=== PATIENT | male | born 1990 | race Hispanic/Latino ===

== ENCOUNTER 2021-07-28 15:28 | Emergency (ER) | payer SELFPAY ==
--- NOTE | 2021-07-28 15:33 | ED.EYEPROB ---
HPI - Eye Problem General Chief complaint: Eye Problems Stated complaint: Eye Pain Time Seen by Provider: 07/28/21 15:33 Source: patient and RN notes reviewed History of Present Illness HPI Narrative: Patient is a 31-year-old male who presents the urgent care with complaints of right pain, redness, blurry vision. Patient states that he noticed it a couple days ago after the wind getting something in his eye . Patient states that he has been using [id number] eye soothing drops without much relief. No other acute complaints. No acute distress noted. Patient read the plan of care. Some parts of this dictation were generated by voice recognition software and may contain typographical and/or grammatical inaccuracies. Related Data Allergies Allergy/AdvReac Type Severity Reaction Status Date / Time No Known Allergies Allergy Verified 07/28/21 15:56 Review of Systems Review of Systems: CONSTITUTIONAL: Denies fever, chills, or sweats. EYES: Reports of painful reddened right eye with clear drainage and blurry vision ENT: Denies rhinorrhea, congestion, sore throat, or otalgia. CARDIOVASCULAR: Denies chest pain, palpitations, or edema. RESPIRATORY: Denies cough or dyspnea. GASTROINTESTINAL: Denies abdominal pain, nausea, vomiting, or diarrhea. GENITOURINARY: Denies dysuria or hematuria. SKIN: Denies rash or itching. MUSCULOSKELETAL: Denies back pain, joint pain, or myalgia. NEUROLOGIC: Denies headache, numbness, or weakness. All other systems reviewed are negative, except as documented in HPI. PMFSH Comments At the time of my signature, I reviewed and agree with the nursing past medical, surgical, social, and family history. There is no relevant family history pertinent to the patient complaint. Exam Narrative: GENERAL: This is a well-nourished, well-developed patient, in no apparent distress. HEAD: normocephalic, atraumatic. EYES: Inconsistent/abnormal pupil dilation to the right. Iris discolored compared to left. Consistent with possible hyphema. Moderately injected right conjunctive a/sclera. left sclera clear/white. Vision is grossly intact. EARS: External ears normal NOSE: External nose normal with no obvious nasal discharge, nares without redness, no rhinorrhea. THROAT: Mucous membranes moist NECK: Neck supple CARDIOVASCULAR: Regular rate and rhythm without murmurs, gallops, or rubs. RESPIRATORY: Clear to auscultation. Breath sounds equal bilaterally. No wheezes, rales, or rhonchi. SKIN: warm, intact with no suspicious lesions or rash, good texture and turgor. NEURO: awake, alert, and oriented to person, place and time. There were no obvious focal neurologic abnormalities. EXTREMITIES: No clubbing, cyanosis, or edema. Course Course Level of Care: Express Care Visit Vital Signs Vital signs: Vital Signs Temperature 98.0 F 07/28/21 15:42 Pulse Rate 57 L 07/28/21 15:42 Respiratory Rate 16 07/28/21 15:42 Blood Pressure 126/68 07/28/21 15:42 Pulse Oximetry 100 07/28/21 15:42 Temperature 98.0 F 07/28/21 15:42 Pulse Rate 57 L 07/28/21 15:42 Respiratory Rate 16 07/28/21 15:42 Blood Pressure 126/68 07/28/21 15:42 Pulse Oximetry 100 07/28/21 15:42 Reviewed MDM - Eye Problem MDM Narrative Medical decision making narrative: Considering patient is refusing ER for further ophthalmology evaluation?we will treat with antibiotic drops. Advised patient to use a warm compress and antibiotic drops as prescribed. Cannot fully rule out emergent ophthalmology diagnosis. Appears to be consistent with hyphema. Advised the patient to go directly to the emergency room if he develops any increase in redness, blurriness, or pain to the eye. Follow-up with ophthalmology first thing Friday. Patient does not wish to go to the emergency room for ophthalmology evaluation. Patient will sign out AGAINST MEDICAL ADVICE. Differential Diagnosis Differential diagnosis: Likely corneal abrasion, conjunct
[2021-07-28 15:42] VITALS: BP 126/68; PULSE 57; RESP 16; TEMP 36.7; O2SAT 100
== END 2021-07-28 16:00 | disposition left against medical advice (07) ==
PROVIDERS: Emergency Provider Nurse Practitioner Family
DX: S05.91XA Unspecified injury of right eye and orbit, initial encounter (principal); X58.XXXA Exposure to other specified factors, initial encounter
CPT/HCPCS: 99203; A9270; G0463